=== PATIENT | female | born 1965 ===

== ENCOUNTER → 2017-11-07 18:26 | Outpatient (CLI) | payer OTHER | END | disposition home or self-care (01) | LOC: LAB 18:26 | DX: R50.9 Fever, unspecified (principal) ==

== ENCOUNTER → 2017-11-07 | Outpatient (CLI) | payer OTHER ==
[~2017-11-07] VITALS: Ht 152.4 cm; Wt 70.3 kg
== END | disposition home or self-care (01) ==
LOC: PPHC 17:57
DX: B34.9 Viral infection, unspecified (principal)

== ENCOUNTER → 2017-11-08 | Outpatient (CLI) | payer OTHER ==
[~2017-11-08] VITALS: Ht 152.4 cm; Wt 68.0 kg
== END | disposition home or self-care (01) ==
LOC: PPHC 11:01
DX: J11.1 Influenza due to unidentified influenza virus with other respiratory manifestations (principal)